=== PATIENT | male | born 1965 | race Two or more races ===

== ENCOUNTER 2020-06-22 10:14 | Outpatient (REF) | payer OTHER, SELFPAY ==
[2020-06-22 13:44] LABS: Alanine Aminotransferase 39 U/L (0-40); Albumin Level 4.3 g/dL (3.5-5.0); Alkaline Phosphatase 55 U/L (39-117); Anion Gap 15 (12-20); Aspartate Amino Transferase 32 U/L (5-37); Bilirubin Total 1.1 mg/dL (0.0-1.0); Blood Urea Nitrogen 13 mg/dL (9-16); Calcium 8.6 mg/dL (8.4-10.2); Carbon Dioxide 24 mmol/L (22-29); Chloride 107 mmol/L (96-108); Cholesterol 150 mg/dL; Estimated Glomerular Filt Rate > 60; Glucose Fasting 108 mg/dL (60-99); HDL Cholesterol 50 mg/dL; LDL Cholesterol Calculated 91 mg/dl; Potassium 4.3 mmol/l (3.3-5.1); Sodium 142 mmol/L (135-145); Total Protein 7.3 g/dL (6.5-8.0); Triglycerides 46 mg/dL
[2020-06-22 17:45] LABS: Estimated Average Glucose 120 mg/dL; Hemoglobin A1c % 5.8 %
== END 2020-06-22 10:15 | disposition home or self-care (01) ==
LOC: HO.LAB 10:14
PROVIDERS: Visit Provider Internal Medicine
DX: E66.01 Morbid (severe) obesity due to excess calories (principal); I10 Essential (primary) hypertension; R73.01 Impaired fasting glucose
CPT/HCPCS: 80053; 80061; 83036; 84443

== ENCOUNTER → 2022-10-01 10:12 | Outpatient (BNVA) | payer OTHER, SELFPAY | PROVIDERS: PCP Internal Medicine; Visit Provider Urology | DX: R35.1 Nocturia (principal) | CPT/HCPCS: 51798; 99202 ==

== ENCOUNTER → 2022-12-03 10:00 | Outpatient (BNVA) | payer OTHER, SELFPAY | PROVIDERS: PCP Internal Medicine; Visit Provider Urology | DX: R35.1 Nocturia (principal) | CPT/HCPCS: 99212 ==

== ENCOUNTER → 2023-02-05 13:41 | Outpatient (BNVA) | payer OTHER, SELFPAY | PROVIDERS: PCP Internal Medicine; Visit Provider Urology | DX: R35.1 Nocturia (principal); R39.15 Urgency of urination; R35.0 Frequency of micturition; Z79.899 Other long term (current) drug therapy | CPT/HCPCS: 52000; 99212 ==

== ENCOUNTER 2023-04-22 14:01 | Outpatient (AMB) | payer OTHER, SELFPAY ==
--- NOTE | 2023-04-22 14:01 | MHC.OFFVIS ---
Intake Intake Visit Reasons: follow up/ Medication review Intake Note: Patient is present for Telephone follow up Urology Med: Doxazosin, Tolterodine Antibiotic Allergy: None Blood Thinner: None Pharmacy: [facility] Allergies lisinopril Allergy (Mild, Verified 02/05/23 14:25) Unknown hyprochlorothazi Allergy (Mild, Uncoded 02/05/23 14:25) Unknown Medication List - Last Reconciled 04/22/23 by Eduard Dahl MD amlodipine 5 mg PO diclofenac sodium 1% 1 ea topical QID doxazosin 2 mg PO BEDTIME 90 days minocycline 100 mg PO oxybutynin chloride ER 10 mg PO DAILY 30 days HPI HPI Comments History of Present Illness Details Garrett is a pleasant male. He is a patient of . Seen for following urologic conditions - nocturia Telemedicine Evaluation 15 min Consultation [employer] Rod[facility]guez Video Did not seem to benefit from tolterodine 4 mg Trial oxybutynin 10 mg daily Discussed potential side effects Has had prior investigation for sleep apnea Stream okay - urgency and frequency during the day Cystoscopy normal Trial anticholinergic 2 month follow-up 4 mg doxazosin daily Nocturia Recent diagnosis with diabetes Had marked nocturia at this point in time Current therapy doxazosin 4 mg Prior therapy doxazosin 8 mg with minimal benefit, tolterodine [facility] Medical History Metabolic syndrome Microscopic hematuria Morbid obesity Review of Systems Const All systems reviewed & are unremarkable except as noted in HPI and below Reports no additional complaints Resp Reports no additional complaints GI Reports no additional complaints Reports as per HPI Musc Reports no additional complaints Physical Exam Telemedicine evaluation Appropriate responses Regular breathing rate and rhythm HEENT Head: Yes normal to inspection Ears: hearing grossly normal bilaterally Eyes General: appearance normal, both eyes and all related structures Neck Neck: Yes normal visual inspection Chest Chest palpation & inspection: normal inspection of the chest Resp Effort & Inspection: normal respiratory effort and able to speak in complete sentences Assessment & Plan Assessment & Plan (1) Nocturia more than twice per night: Code(s): R35.1 - Nocturia Plan Trial tolterodine Two month follow-up Medications: New oxybutynin chloride ER 10 mg PO DAILY 30 days 30 tabs 1RF N32.81 - Overactive bladder, R35.1 - Nocturia Discontinued tolterodine ER Discontinued Reason: Patient Completed Course 4 mg PO DAILY 30 days 30 caps 1RF R35.1 - Nocturia Patient Instructions: Imaging studies, laboratory and physical exam results were discussed and reviewed in detail. No major barriers to patient understanding were identified. An opportunity to ask questions regarding the treatment plan was provided. All questions were answered. The patient expressed understanding and agreement with the above treatment plan. The patient is aware they should contact our office by phone for worsening of their current condition or the appearance of new urologic symptoms. Compliance is encouraged with any medications and followup testing that is ordered. It is a privilege to participate in the urologic care of your patient. If you have any questions or concerns regarding treatment for the above conditions, or other urologic issues, please do not hesitate to contact me. The office telephone contact is [phone]. This note is constructed using voice recognition software. While every effort has been made to ensure accuracy home paraprofessional errors may have been included. Yours sincerely, Dr Eduard Dahl MD, [facility] - Urology Providers of Expert, Compassionate Care for the Genitourinary System Telehealth Telehealth Location of provider rendering services: practice address Location of patient: address on file Patient Identification confirmed using: Name, : Yes Telehealth method: video Patient verbally consented to treatment: Yes Patient verbally consented to billing insurance company: Yes Patient informed of any privacy concerns related to visit: Yes Coding Level of Care Code Tele Est Pt Level 4 (03082) Diagnoses Nocturia more than twice per night R35.1
== END 2023-04-22 15:17 | disposition home or self-care (01) ==
LOC: HO.HUSH 14:01
PROVIDERS: PCP Internal Medicine; Visit Provider Urology
DX: R35.1 Nocturia (principal)
CPT/HCPCS: 99213

== ENCOUNTER → 2023-04-22 14:01 | Outpatient (BNVA) | payer OTHER, SELFPAY | PROVIDERS: PCP Internal Medicine; Visit Provider Urology ==

== ENCOUNTER 2023-06-25 12:49 | Outpatient (AMB) | payer OTHER, SELFPAY ==
--- NOTE | 2023-06-25 12:50 | MHC.OFFVIS ---
Intake Intake Visit Reasons: 2m follow up Intake Note: Patient is present for Telephone follow up Urology Med: Doxazosin, Tolterodine Antibiotic Allergy: None Blood Thinner: None Pharmacy: [facility] Allergies lisinopril Allergy (Mild, Verified 02/05/23 14:25) Unknown hyprochlorothazi Allergy (Mild, Uncoded 02/05/23 14:25) Unknown HPI HPI Comments History of Present Illness Details Garrett is a pleasant male. He is a patient of . He is seen for following urologic conditions - nocturia Telemedicine Evaluation 15 min Consultation [facility] Video Follow-up from oxybutynin Minimal benefit Nocturia x3 Did not seem to benefit from tolterodine 4 mg or oxybutynin Trial oxybutynin 10 mg daily Discussed potential side effects Trial combination therapy Toviaz 4 mg plus Myrbetriq 25 Stream okay - urgency and frequency during the day Cystoscopy normal Nocturia Recent diagnosis with diabetes Had marked nocturia at this point in time Current therapy doxazosin 4 mg Prior therapy doxazosin 8 mg with minimal benefit, tolterodine 4mg, oxybutynin 10 mg [facility] Medical History Microscopic hematuria Metabolic syndrome Morbid obesity Review of Systems Const All systems reviewed & are unremarkable except as noted in HPI and below Reports no additional complaints Resp Reports no additional complaints GI Reports no additional complaints Reports as per HPI Musc Reports no additional complaints Physical Exam Telemedicine evaluation Appropriate responses Regular breathing rate and rhythm HEENT Head: Yes normal to inspection Ears: hearing grossly normal bilaterally Eyes General: appearance normal, both eyes and all related structures Neck Neck: Yes normal visual inspection Chest Chest palpation & inspection: normal inspection of the chest Resp Effort & Inspection: normal respiratory effort and able to speak in complete sentences Assessment & Plan Assessment & Plan (1) Nocturia more than twice per night: Code(s): R35.1 - Nocturia Plan Trial medications with 2 month follow-up Medications: New fesoterodine ER (Toviaz) 4 mg PO DAILY 30 tabs 1RF 30 days N39.41 - Urge incontinence, R35.1 - Nocturia mirabegron ER 25 mg PO DAILY 30 tabs 1RF 30 days N32.81 - Overactive bladder, R35.1 - Nocturia Patient Instructions: Imaging studies, laboratory and physical exam results were discussed and reviewed in detail. No major barriers to patient understanding were identified. An opportunity to ask questions regarding the treatment plan was provided. All questions were answered. The patient expressed understanding and agreement with the above treatment plan. The patient is aware they should contact our office by phone for worsening of their current condition or the appearance of new urologic symptoms. Compliance is encouraged with any medications and followup testing that is ordered. It is a privilege to participate in the urologic care of your patient. If you have any questions or concerns regarding treatment for the above conditions, or other urologic issues, please do not hesitate to contact me. The office telephone contact is [phone]. This note is constructed using voice recognition software. While every effort has been made to ensure accuracy cellophane wrapping examiner errors may have been included. Yours sincerely, Dr Eduard Dahl MD, [facility] - Urology Providers of Expert, Compassionate Care for the Genitourinary System Telehealth Telehealth Location of provider rendering services: practice address Location of patient: address on file Patient Identification confirmed using: Name, : Yes Telehealth method: voice only Patient verbally consented to treatment: Yes Patient verbally consented to billing insurance company: Yes Patient informed of any privacy concerns related to visit: Yes Coding Level of Care Code Tele Est Pt Level 4 (11615) Diagnoses Nocturia more than twice per night R35.1
== END 2023-06-25 14:11 | disposition home or self-care (01) ==
LOC: HO.HUSH 12:49
PROVIDERS: PCP Internal Medicine; Visit Provider Urology
DX: R35.1 Nocturia (principal)
CPT/HCPCS: 99214

== ENCOUNTER → 2023-06-25 12:49 | Outpatient (BNVA) | payer OTHER, SELFPAY | PROVIDERS: PCP Internal Medicine; Visit Provider Urology ==

== ENCOUNTER 2023-08-29 14:24 | Outpatient (AMB) | payer OTHER, SELFPAY ==
--- NOTE | 2023-08-29 14:25 | A.OFFVIS_ITS ---
Intake Intake Visit Reasons: 2m follow up Intake Note: Patient is Present for Telephone Follow Up For Urology Med: Mirabegron, Toviaz Antibiotic Allergy:None Blood Thinner: None Allergies lisinopril Allergy (Mild, Verified 08/29/23 14:27) Unknown hyprochlorothazi Allergy (Mild, Uncoded 08/29/23 14:27) Unknown HPI HPI Comments History of Present Illness Details Garrett is a pleasant male. He is a patient of . He is seen for following urologic conditions - nocturia - lower urinary tract symptoms Telemedicine Evaluation 15 min Consultation [facility] Rodríguez Video attempted Stream okay - urgency and frequency during the day Cystoscopy normal Nocturia Recent diagnosis with diabetes Had marked nocturia at this point in time Current therapy doxazosin 4 mg Prior therapy doxazosin 8 mg with minimal benefit, tolterodine 4mg, oxybutynin 10 mg - toviaz 4 mg plus Myrbetriq 25 PFSH Medical History Microscopic hematuria Metabolic syndrome Morbid obesity Review of Systems Const All systems reviewed & are unremarkable except as noted in HPI and below Reports no additional complaints Resp Reports no additional complaints GI Reports no additional complaints Reports as per HPI Musc Reports no additional complaints Physical Exam Telemedicine evaluation Appropriate responses Regular breathing rate and rhythm HEENT Head: Yes normal to inspection Ears: hearing grossly normal bilaterally Eyes General: appearance normal, both eyes and all related structures Neck Neck: Yes normal visual inspection Chest Chest palpation & inspection: normal inspection of the chest Resp Effort & Inspection: normal respiratory effort and able to speak in complete sentences Assessment & Plan Assessment & Plan (1) Nocturia more than twice per night: Code(s): R35.1 - Nocturia Plan Six-month follow-up PVR Patient Instructions: Imaging studies, laboratory and physical exam results were discussed and reviewed in detail. No major barriers to patient understanding were identified. An opportunity to ask questions regarding the treatment plan was provided. All questions were answered. The patient expressed understanding and agreement with the above treatment plan. The patient is aware they should contact our office by phone for worsening of their current condition or the appearance of new urologic symptoms. Compliance is encouraged with any medications and followup testing that is ordered. It is a privilege to participate in the urologic care of your patient. If you have any questions or concerns regarding treatment for the above conditions, or other urologic issues, please do not hesitate to contact me. The office telephone contact is [phone]. This note is constructed using voice recognition software. While every effort has been made to ensure accuracy harbor police launch commander errors may have been included. Yours sincerely, Dr Eduard Dahl MD, [facility] - Urology Providers of Expert, Compassionate Care for the Genitourinary System Telehealth Telehealth Location of provider rendering services: practice address Location of patient: address on file Patient Identification confirmed using: Name, : Yes Telehealth method: voice only Patient verbally consented to treatment: Yes Patient verbally consented to billing insurance company: Yes Patient informed of any privacy concerns related to visit: Yes Coding Level of Care Code Tele Est Pt Level 3 (01422) Diagnoses Nocturia more than twice per night R35.1
== END 2023-08-29 15:14 | disposition home or self-care (01) ==
LOC: HO.HUSH 14:24
PROVIDERS: PCP Internal Medicine; Visit Provider Urology
DX: R35.1 Nocturia (principal)
CPT/HCPCS: 99213

== ENCOUNTER → 2023-08-29 14:24 | Outpatient (BNVA) | payer OTHER, SELFPAY | PROVIDERS: PCP Internal Medicine; Visit Provider Urology ==

== ENCOUNTER 2024-03-02 14:35 | Outpatient (AMB) | payer OTHER, SELFPAY ==
--- NOTE | 2024-03-02 14:43 | MHC.OFFVIS ---
Intake Visit Reasons: 6m/PVR Intake Note: Patient is Present for PVR/ Urology Med: Fesoterodine, Myrbetriq Antibiotic Allergy:None Blood Thinner:None Todays PVR: 0 Patient states that he is no longer taking Myrbetriq or Fesoterodine states that both medications has not improved his symptoms. Patient states that he always feels like he does not empty out his bladder. Patient has also failed oxybutynin. Patient would like to discuss options for Botox injections Music Publisher Required: No Allergies lisinopril Allergy (Mild, Verified 03/02/24 14:50) Unknown hyprochlorothazi Allergy (Mild, Uncoded 03/02/24 14:50) Unknown HPI Comments Details: Garrett is a pleasant male. He is a patient of . He is seen for following urologic conditions - nocturia - lower urinary tract symptoms Has noticed improved urination since he reduce drinking soda and is drinking mostly water Less frequency and urge Discussed reducing liquid calories Would prefer to wait 6 months for review versus Botox Prior Cystoscopy normal Overactive bladder Urgency and frequency during the day Has previously tried oxybutynin, Toviaz, Myrbetriq Minimal improvement with oral medications Interested in Botox Nocturia Recent diagnosis with diabetes Had marked nocturia at this point in time Current therapy doxazosin 4 mg Prior therapy doxazosin 8 mg with minimal benefit, tolterodine 4mg, oxybutynin 10 mg - toviaz 4 mg plus Myrbetriq 25 PFSH Medical History Microscopic hematuria Metabolic syndrome Morbid obesity Review of Systems Const Denies chills and Denies fever(s) Card Reports no additional complaints and Denies syncope Resp Denies cough GI Denies abdominal pain and Denies heartburn Reports as per HPI and Denies change in libido Neuro Denies syncope Psych Denies change in libido Endo Denies change in libido Physical Exam Const General: cooperative, healthy appearing, comfortable and no acute distress Orientation/consciousness: patient oriented x3 HEENT Face and sinus: Yes normal facial exam Mouth: moist mucous membranes Neck Neck: Yes normal visual inspection, Yes full ROM and Yes trachea midline Chest Chest palpation & inspection: normal inspection of the chest Resp Effort & Inspection: normal respiratory effort, able to speak in complete sentences and no respiratory distress GI Inspection: Yes normal to inspection Back/Spine/Pelvis Cervical Spine: normal cervical lordosis Thoracic/Lumbar Spine: thoracic and lumbar spine normal to inspection Skin General skin exam: no rashes or lesions noted Neuro General: patient oriented x3, gait normal, tone normal and moves all extremities Extrem General: Yes normal to inspection and Yes capillary refill normal Office Procedures Post Void Residual Post Residual Void Post Void Residual (PVR): 0 [id number]-Dihp Void Residual by ultrasound Assessment & Plan Assessment & Plan (1) Nocturia more than twice per night: Code(s): R35.1 - Nocturia Category: Medical Plan Six-month follow-up PVR Orders: Orders AMB Post Void Residual by ultrasound Today R35.1 - Nocturia Patient Instructions: Imaging studies, laboratory and physical exam results were discussed and reviewed in detail. No major barriers to patient understanding were identified. An opportunity to ask questions regarding the treatment plan was provided. All questions were answered. The patient expressed understanding and agreement with the above treatment plan. The patient is aware they should contact our office by phone for worsening of their current condition or the appearance of new urologic symptoms. Compliance is encouraged with any medications and followup testing that is ordered. It is a privilege to participate in the urologic care of your patient. If you have any questions or concerns regarding treatment for the above conditions, or other urologic issues, please do not hesitate to contact me. The office telephone contact is [phone]. This note is constructed using voice recognition software. While every effort has been made to ensure accuracy division human resources manager errors may have been included. Yours sincerely, Dr Eduard Dahl MD, [facility] - Urology Providers of Expert, Compassionate Care for the Genitourinary System Coding Level of Care Code Est Pt Level 3 (07699) Diagnoses Nocturia more than twice per night R35.1 CPT Codes Post Residual Void - PVR CPT Code: 85233-Conj Void Residual by ultrasound ([id number])
== END 2024-03-02 15:20 | disposition home or self-care (01) ==
PROVIDERS: PCP Internal Medicine; Visit Provider Urology
DX: R35.1 Nocturia (principal)
CPT/HCPCS: 99213

== ENCOUNTER → 2024-03-02 14:35 | Outpatient (BNVA) | payer OTHER, SELFPAY | PROVIDERS: PCP Internal Medicine; Visit Provider Urology | DX: R35.1 Nocturia (principal); Z79.899 Other long term (current) drug therapy | CPT/HCPCS: 51798; 99212 ==

== ENCOUNTER 2024-04-08 10:54 | Outpatient (REF) | payer OTHER, SELFPAY ==
[2024-04-08 14:21] LABS: MANUAL DIFF FLAG NO
[2024-04-08 14:33] LABS: Basophils Absolute Auto 0.1 X10*3/uL (0.0-0.2); Basophils Percent Auto 1.1 % (0-2); Eosinophils Absolute Auto 0.2 X10*3/uL (0.0-0.4); Eosinophils Percent Auto 3.2 % (0-4); Hematocrit 44.4 % (42.0-52.0); Hemoglobin 15.2 g/dl (14.0-18.0); Imm Gran Abs Auto 0.03 X10*3/uL (0.00-0.03); Imm Gran Pct Auto 0.6 % (0.0-0.4); Lymphocytes Absolute Auto 1.6 X10*3/uL (1.2-4.9); Lymphocytes Percent Auto 29.5 % (20-40); Mean Corpuscular HGB Conc 34.2 g/dl (31.0-36.0); Mean Corpuscular Hemoglobin 30.5 pg (27.0-33.0); Mean Corpuscular Volume 89.2 fL (80.0-98.0); Mean Platelet Volume 10.6 fL (9.4-12.4); Monocytes Absolute Auto 0.5 X10*3/uL (0.1-1.2); Monocytes Percent Auto 8.9 % (2-11); Neutrophils Percent Auto 56.7 % (45-73); Platelet Count 283 X10*3/uL (160-400); Red Blood Count 4.98 X10*6/uL (4.60-5.80); Red Cell Distribution Width 14.2 % (11.0-16.0); White Blood Count 5.3 X10*3/uL (4.8-10.8)
[2024-04-08 14:51] LABS: Alanine Aminotransferase 20 U/L (0-40); Albumin Level 4.1 g/dL (3.5-5.0); Alkaline Phosphatase 63 U/L (39-117); Anion Gap 12 (12-20); Aspartate Amino Transferase 19 U/L (5-37); Blood Urea Nitrogen 10 mg/dL (9-16); Calcium 9.5 mg/dL (8.4-10.2); Carbon Dioxide 24 mmol/L (22-29); Chloride 107 mmol/L (96-108); Cholesterol 162 mg/dL (<200); Estimated Glomerular Filt Rate > 60; Glucose Random 96 mg/dL (60-115); HDL Cholesterol 46 mg/dL (>40); LDL Cholesterol Calculated 104 mg/dL (<100); Potassium 3.8 mmol/L (3.3-5.1); Sodium 139 mmol/L (135-145); Total Protein 7.5 g/dL (6.5-8.0); Triglycerides 61 mg/dL (<150)
[2024-04-08 15:10] LABS: TSH reflex Free T4 1.25 uIU/mL (0.32-4.0)
[2024-04-09 08:14] LABS: ~Hepatitis C Antibody Nonreactive (Nonreactive)
== END 2024-04-08 10:55 | disposition home or self-care (01) ==
LOC: HO.CHCLDS 10:54
PROVIDERS: Visit Provider Internal Medicine
DX: I10 Essential (primary) hypertension (principal); E66.01 Morbid (severe) obesity due to excess calories
CPT/HCPCS: 36415; 80053; 80061; 84443; 85025; 86803

== ENCOUNTER 2025-07-29 09:25 | Outpatient (AMB) | payer OTHER, SELFPAY ==
--- NOTE | 2025-07-29 09:34 | MHC.OFFVIS ---
Vital Signs 07/29/25 09:53 Height 5 ft 11 in Weight 316 lb BMI 44.1 BP 132/81 Blood Pressure Location Lt brachial Position Sitting Pulse 75 Intake Visit Reasons: Colonoscopy screening Intake Note: Patient new consult for 2nd pre Colonoscopy screening Patient denies any GI issues for today. Patient have a positive cologuard Aircrewman Required: No Accompanied by: Self / Same As Patient Allergies No Known Allergies Allergy (Verified 07/29/25 09:41) Medication List - Last Reconciled 07/29/25 by Savi Giron CNP amlodipine 5 mg PO minocycline 100 mg PO tirzepatide (weight loss) (Zepbound) mg subcut QWEEK HPI HPI Colonoscopy screening: Details: Patient is a 59-year-old male with PMH of obesity, hypertension, SHERWIN. Referred by PCP for further evaluation of positive Cologuard. His Cologuard test was collected on April 17, 2025, and was positive. He has a history of a prior colonoscopy performed at [facility] over six or seven years ago, which was reported as normal. He also had a prior Cologuard test that was negative. The patient reports bowel movements once a day or sometimes skipping a day, which he attributes to taking Zepbound. He occasionally feels like he does not empty completely but denies constipation or diarrhea. He has a history of intermittent hematochezia, which occurred over a year ago, noting blood both with wiping and in the toilet, but has not seen any recently. His medical history is significant for hypertension, for which he takes amlodipine. He also has a history of obstructive sleep apnea and an enlarged prostate. He uses Zepbound for weight loss and sleep apnea and has had significant weight loss from a starting weight of 385-390 pounds to his current weight of 316 pounds. He is not compliant with CPAP therapy for his sleep apnea. He reports a past negative experience with intubation while not fully sedated. Patient denies: fever/chills, n/v, appetite changes, pyrosis, regurgitation,dysphasia, unintentional wt loss, ab pain . Social hx: -ETOH use reports rare alcohol consumption, about one drink every month or two. -denies recreational drug use -non-smoker - family hx as below -denies personal hx of CA -denies significant cardiopulmonary history -tolerated anesthesia in the past without difficulty. [facility] Medical History (Updated 07/29/25 @ 10:29 by Savi Giron CNP) Obesity Hypertension Positive colorectal cancer screening using Cologuard test Microscopic hematuria Metabolic syndrome Morbid obesity Surgical History (Updated 07/29/25 @ 09:53 by Taina Barbosa) Hx of colonoscopy History of surgical amputation of finger of right hand Hx of cholecystectomy Social History (Updated 07/29/25 @ 09:42 by Taina Barbosa) Household Members: Family Alcohol intake: never Patient Tobacco Use Status: Never used Tobacco Use of substances other than those prescribed or required for medical reasons: No Review of Systems Const Reports as per HPI ENT Reports as per HPI Card Reports as per HPI Resp Reports as per HPI GI Reports as per HPI Reports as per HPI Physical Exam Vital Signs: Last Vital Signs Pulse 75 07/29/25 09:53 BP 132/81 07/29/25 09:53 BMI result Body Mass Index 44.1 Const General: healthy appearing, no acute distress and well developed Nutritional Appearance: obese Orientation/consciousness: patient oriented x3 HEENT Head: Yes normal to inspection, Yes normocephalic and Yes atraumatic Face and sinus: Yes normal facial exam Eyes General: appearance normal, both eyes and all related structures Neck Neck: Yes normal visual inspection Resp Effort & Inspection: normal respiratory effort, able to speak in complete sentences, no tracheal deviation and symmetric chest movement Cardio Jugular venous distension: no JVD GI Inspection: Yes obesity Neuro General: patient oriented x3 Gait exam (Neuro): Normal gait present Psych Appearance: grossly normal Mental Status: mental status grossly normal Speech and movement: Normal speech and movement present Affect: normal affect Attitude: cooperative Thought process: Normal thought process present Thought content: Normal thought content present Insight: Good insight present (Psych) Judgement: Good judgement present (Psych) Assessment & Plan Assessment & Plan (1) Positive colorectal cancer screening using Cologuard test: Comment: collected 04/17/25 Code(s): R19.5 - Other fecal abnormalities Category: Medical Plan: Educated the patient on the implications of his positive Cologuard test, explaining that the next step is a colonoscopy for direct visualization of the large intestine to investigate potential causes such as polyps, a mass, or cancer. I emphasized that the procedure should be completed within six months of the Cologuard collection, and we will aim for September. The patient was agreeable to the plan. - Fasting labs will be ordered for re-evaluation prior to the procedure. - The patient was instructed on the MiraLax split prep protocol, including a 64-ounce Gatorade solution and four laxative tablets. - He was advised on dietary restrictions, including a clear liquid diet the day before the procedure and avoiding red, blue, or purple colored liquids. - Informed the patient that he will be sedated and needs reliable transportation - Follow-up will occur after the procedure to discuss the results. (2) Obesity: Code(s): E66.9 - Obesity, unspecified Category: Medical Qualifiers: Obesity type: due to excess calories Obesity classification: adult class 3 (BMI >= 40) Serious obesity comorbidity presence: without serious comorbidity Body mass index: BMI 40.0-44.9 Qualified Code(s): E66.813 - Obesity, class 3; Z68.41 - Body mass index [BMI] 40.0-44.9, adult Plan: The patient is taking Zepbound for weight loss and has shown significant progress. - He was instructed to hold Zepbound for seven days before his scheduled colonoscopy. Plan Follow-up after endoscopy or sooner as needed Time: I spent a total of 23 minutes on the date of encounter which includes: Preparing to see the patient (reviewed previous documentation, test results and medical history) Performing a medically appropriate exam and/or evaluation Ordering medications, tests, and procedures Documenting clinical information in the health record Orders: Orders Complete Blood Count Auto Diff Today R19.5 - Other fecal abnormalities Comprehensive [place]. Panel Fast Today R19.5 - Other fecal abnormalities Referrals GI Procedure Notification R19.5 - Other fecal abnormalities Medications: New bisacodyl take four tablets once day of colonoscopy prep 20 mg (4 x 5 mg) PO ONCE 4 tabs 0RF polyethylene glycol 3350 (Miralax) per colonoscopy prep instructions 238 grams PO ONCE 238 grams 0RF Coding Level of Care Code New Pt New Pt Level 2 (62159) Patient Type New Diagnoses Positive colorectal cancer screening using Cologuard test R19.5 Class 3 severe obesity due to excess calories without serious comorbidity with body mass index (BMI) of 40.0 to 44.9 in adult E66.813; Z68.41 Obesity type: due to excess calories Obesity classification: adult class 3 (BMI >= 40) Serious obesity comorbidity presence: without serious comorbidity Body mass index: BMI 40.0-44.9
[2025-07-29 09:53] VITALS: BP 132/81; PULSE 75; BMI 44.1
== END 2025-07-29 10:26 | disposition home or self-care (01) ==
LOC: HO.HGI 09:26
PROVIDERS: PCP Internal Medicine; Visit Provider Nurse Practitioner Family
DX: R19.5 Other fecal abnormalities (principal); E66.813 Obesity, class 3; Z68.41 Body mass index [BMI] 40.0-44.9, adult
CPT/HCPCS: 99202

== ENCOUNTER → 2025-07-29 09:25 | Outpatient (BNVA) | payer OTHER, SELFPAY | PROVIDERS: PCP Internal Medicine; Visit Provider Nurse Practitioner Family | DX: R19.5 Other fecal abnormalities (principal); E66.813 Obesity, class 3; Z68.41 Body mass index [BMI] 40.0-44.9, adult | CPT/HCPCS: 99202 ==

== ENCOUNTER 2025-08-01 09:36 | Outpatient (REF) | payer OTHER, SELFPAY ==
[2025-08-01 14:32] LABS: MANUAL DIFF FLAG NO
[2025-08-01 14:46] LABS: Hematocrit 47.8 % (42.0-52.0); Hemoglobin 15.6 g/dl (14.0-18.0); Imm Gran Abs Auto 0.02 X10*3/uL (0.00-0.03); Imm Gran Pct Auto 0.3 % (0.0-0.4); Lymphocytes Absolute Auto 1.4 X10*3/uL (1.2-4.9); Mean Corpuscular HGB Conc 32.6 g/dl (31.0-36.0); Mean Corpuscular Hemoglobin 29.8 pg (27.0-33.0); Mean Corpuscular Volume 91.2 fL (80.0-98.0); NRBC Abs Auto 0.000 X10*3/uL (0.0-0.012); NRBC Pct Auto 0.0 /100WBC (0.0-0.2); Platelet Count 292 X10*3/uL (160-400); Red Blood Count 5.24 X10*6/uL (4.60-5.80); White Blood Count 6.0 X10*3/uL (4.8-10.8)
[2025-08-01 14:49] LABS: Alanine Aminotransferase 32 U/L (0-40); Albumin Level 4.6 g/dL (3.5-5.0); Alkaline Phosphatase 67 U/L (39-117); Anion Gap 13 (12-20); Aspartate Amino Transferase 35 U/L (5-37); Blood Urea Nitrogen 13 mg/dL (9-16); Calcium 9.5 mg/dL (8.4-10.2); Carbon Dioxide 25 mmol/L (22-29); Chloride 105 mmol/L (96-108); Estimated Glomerular Filt Rate > 60; Potassium 4.1 mmol/L (3.3-5.1); Sodium 139 mmol/L (135-145); Total Protein 7.8 g/dL (6.5-8.0)
== END 2025-08-01 09:37 | disposition home or self-care (01) ==
LOC: HO.CHCLDS 09:36
PROVIDERS: Visit Provider Nurse Practitioner Family
DX: R19.5 Other fecal abnormalities (principal)
CPT/HCPCS: 36415; 80053; 85025